=== PATIENT | male | born 1990 | race Two or more races ===

== ENCOUNTER 2016-12-25 18:06 | Observation (INO) | payer MEDICAID, OTHER ==
[~2016-12-25] VITALS: Ht 165.1 cm; Wt 77.1 kg
[2016-12-25 19:15] VITALS: BP 121/64
[2016-12-25] MEDS ORDERED: SODIUM CHLORIDE 0.9% 500 ML IV ONE (19:15)
[2016-12-25 19:34] LABS: Basophils # (auto) 0.1 uL; Basophils % (auto) 0.6 % (0.0-2.0); Eosinophils # (auto) 0.2 uL; Eosinophils % (auto) 2.4 % (0.0-7.0); Hematocrit 40.8 % (41.0-53.0); Hemoglobin 13.7 g/dL (13.5-17.5); Lymphocytes # (auto) 2.8 uL; Lymphocytes % (auto) 31.3 % (10.0-50.0); Mean Corpuscular Hemoglobin 30.5 pg (28.0-32.0); Mean Corpuscular Hgb Conc. 33.7 g/dL (32.0-36.0); Mean Corpuscular Volume 90.4 fL (80.0-100.0); Mean Platelet Volume 8.5 fL (7.4-10.4); Monocytes # (auto) 0.8 uL; Monocytes % (auto) 9.2 % (0.0-12.0); Neutrophils % (auto) 56.5 % (37.0-80.0); Platelet Count (auto) 271 10^3/uL (140-450); Red Cell Distribution Width 13.1 % (11.6-16.0); White Blood Cell 8.9 10^3/uL (4.4-10.8)
[2016-12-25 19:52] LABS: Albumin 4.3 g/dL (3.4-5.0); BUN/Creatinine Ratio 24.4; Calcium 8.5 mg/dL (8.5-10.1); Potassium 3.7 mmol/L (3.5-5.1)
[2016-12-25 19:57] LABS: Bilirubin, Total 0.4 mg/dL (0.2-1.0); Total Protein 7.3 g/dL (6.4-8.2)
[2016-12-25 20:19] LABS: Urine RBC None Seen /hpf (0 - 3)
[2016-12-25 20:34] LABS: Urine Bilirubin Negative (Negative); Urine Blood Negative /uL (Negative); Urine Color Yellow (Yellow); Urine Glucose Normal (Normal); Urine Ketone Negative (Negative); Urine Mucus FEW (None Seen); Urine Nitrite Negative (Negative); Urine Urobilinogen Normal (Negative)
== END 2016-12-25 23:19 | disposition left against medical advice (07) | DRG 203 ==
LOC: ER 18:11 → OVERFLOW 19:18 → ER 23:18
PROVIDERS: ADMIT Emergency Medicine; ATTEND Emergency Medicine
DX: R07.89 Other chest pain (principal); R06.02 Shortness of breath; Z83.3 Family history of diabetes mellitus
CPT/HCPCS: 36415; 71020; 80053; 80307; 81001; 84484; 85025; 93005; 96360; 99285; G0378; J7040